=== PATIENT | female | born 1995 | race Caucasian/White ===

== ENCOUNTER 2019-05-07 21:14 | Emergency (ER) | payer MEDICAID, OTHER ==
[~2019-05-07] VITALS: Ht 170.2 cm; Wt 54.0 kg
[2019-05-07 21:19] VITALS: BP 105/73
--- NOTE | 2019-05-07 22:45 | NUR ---
not in lobby
--- NOTE | 2019-05-07 23:00 | NUR ---
pt not in lobby
--- NOTE | 2019-05-07 23:35 | NUR ---
NOT IN LOBBY
== END 2019-05-07 23:36 | disposition left against medical advice (07) ==
LOC: ED 23:30
DX: R10.9 Unspecified abdominal pain (principal); Z53.21 Procedure and treatment not carried out due to patient leaving prior to being seen by health care provider

== ENCOUNTER 2019-05-08 13:44 | Emergency (ER) | payer SELFPAY ==
[~2019-05-08] VITALS: Ht 170.2 cm; Wt 54.9 kg
[2019-05-08 14:26] VITALS: BP 113/57
--- NOTE | 2019-05-08 14:30 | NUR ---
ASSUMED CARE OF PT AT THIS TIME. THIS IS A 23 YO FEMALE WHO PRESENTS TO THE ER C/O BILAT UPPPER ABD CRAMPING, LOWER ABD CRAMPING AND "A SECOND PERIOD FOR THIS MONTH". PT HAD A PERIOD ON 04/14. PT AO X 4. SKIN PWD. RESP EVEN AND UNLABORED. PT STEADY UPON AMBULATION TO RESTROOM AND BACK TO [facility]. URINE SAMPLE OBTAINED AND SENT TO LAB. CALL LIGHT WITHIN REACH. WILL CONT TO MONITOR PT.
[2019-05-08 14:51] LABS: BASOPHILS # (AUTO) 0.01 x10^3/uL (0-0.1); BASOPHILS % (AUTO) 0 % (0-1); EOSINOPHILS # (AUTO) 0.05 x10^3/uL (0-0.4); EOSINOPHILS % (AUTO) 1 % (1-7); LYMPHOCYTES # (AUTO) 1.68 x10^3/uL (1-3.4); LYMPHOCYTES % (AUTO) 35 % (22-44); MD NO; MEAN CORPUSCULAR HEMOGLOBIN 30.4 pg (27.0-34.8); MEAN CORPUSCULAR VOLUME 92.2 fL (80-100); MEAN PLATELET VOLUME 8.9 fL (7.4-10.4); MONOCYTES # (AUTO) 0.26 x10^3/uL (0.2-0.8); MONOCYTES % (AUTO) 5 % (2-9); NEUTROPHILS # (AUTO) 2.86 x10^3/uL (1.8-6.8); NEUTROPHILS % (AUTO) 59 % (42-75); PLATELET COUNT 222 x10^3/uL (130-400); RED BLOOD COUNT 4.28 x10^6/uL (3.82-5.3); RED CELL DISTRIBUTION WIDTH 14.1 % (9.6-15.2)
[2019-05-08 15:01] LABS: ALANINE AMINOTRANSFERASE 8 U/L (12-78); ALBUMIN 3.2 g/dL (3.4-5.0); CALCIUM 8.5 mg/dL (8.5-10.1); CREATININE 1.11 mg/dL (0.55-1.02)
[2019-05-08 15:01] LABS: CULTURE INDICATED? YES; MICROSCOPIC AUTO
[2019-05-08 15:05] LABS: ALKALINE PHOSPHATASE 63 U/L (45-117); BILIRUBIN,TOTAL 0.3 mg/dL (0.2-1.0); TOTAL PROTEIN 6.7 g/dL (6.4-8.2)
[2019-05-08 15:09] LABS: ANION GAP 5 mmol/L (5-15); CHLORIDE 111 mmol/L (98-107)
--- NOTE | 2019-05-08 15:25 | NUR ---
PT CURRENTLY RESTING ON GURK1 Speed. NAD NOTED. SKIN PWD. RESP EVEN AND UNLABORED. PT AWARE THAT WE ARE WAITING FOR LAB/IMAGING RESULTS. SIGNIFICANT OTHER AT BEDSIDE. PT ON CONT BP, CARDIAC AND O2 MONITORS. CALL LIGHT WITHIN REACH. WILL CONT TO MONITOR PT.
--- NOTE | 2019-05-08 15:55 | NUR ---
TASK RN: DC EDUCATION PROVIDED, PT DEMONSTRATES UNDERSTANDING. PT AMBULATED STEADILY TO DC WITH SO
== END 2019-05-08 15:57 | disposition home or self-care (01) ==
LOC: ED 15:40
DX: N39.0 Urinary tract infection, site not specified (principal); F17.200 Nicotine dependence, unspecified, uncomplicated
CPT/HCPCS: 36415; 76830; 80053; 81001; 83690; 84702; 85025; 87077; 87086; 99284

== ENCOUNTER 2019-06-24 04:41 | Emergency (ER) | payer MEDICAID, OTHER ==
[~2019-06-24] VITALS: Ht 170.2 cm; Wt 52.5 kg
[2019-06-24 04:43] VITALS: BP 126/66
== END 2019-06-24 05:35 | disposition home or self-care (01) ==
LOC: ED 05:23
DX: K02.9 Dental caries, unspecified (principal)
CPT/HCPCS: 99283